=== PATIENT | female | born 1955 | race Caucasian/White ===

== ENCOUNTER → 2020-05-15 | Outpatient (CLI) | payer MEDICAID ==
--- NOTE | 2020-05-15 11:56 | KCIC ---
Examination: MRI of the left knee without contrast HISTORY: History of left knee pain, history of patellar dislocation COMPARISON: None available Technique: Multiplanar, multisequence MR imaging of the left knee was performed without contrast. FINDINGS: The anterior cruciate ligament, posterior cruciate ligament appears intact. There is blunting of the junction of the body and anterior horn of the lateral meniscus probably a small tear. The medial meniscus appears intact. The extensor mechanism is intact. The medial collateral ligament appears intact. Lateral collateral ligamentous complex including the fibular collateral ligament, biceps femoris tendon, popliteus tendon appears intact. Moderate knee joint effusion. The medial, lateral retinaculum appears intact. Small popliteal cyst identified. 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 The medial, lateral retinaculum appears intact. Superficial fraying of cartilage identified in the medial, lateral, patellofemoral compartments. IMPRESSION: 1. Blunting of the body and anterior horn of the lateral meniscus likely a small tear, could be a degenerative tear. 2. Moderate tricompartmental degenerative changes. Moderate knee joint effusion with small popliteal cyst. 3. 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 Electronically signed by: Salas Blair MD (05/15/2020 11:53 AM) [id number]
== END | disposition home or self-care (01) ==
LOC: KCIC MRI 09:42
PROVIDERS: ATTEND Orthopaedic Surgery
DX: M17.12 Unilateral primary osteoarthritis, left knee (principal); M25.462 Effusion, left knee; M71.22 Synovial cyst of popliteal space [Baker], left knee; M23.92 Unspecified internal derangement of left knee
CPT/HCPCS: 73721

== ENCOUNTER → 2020-06-05 | Outpatient (CLI) | payer MEDICAID ==
[2020-06-05 09:57] LABS: BASO # 0.1 x10^3/uL (0.0-0.2); BASO % 1 % (0-3); EOS # 0.2 x10^3/uL (0.0-0.7); EOS % 3 % (0-3); HEMATOCRIT 38.4 % (36.0-47.0); HEMOGLOBIN 12.8 g/dL (12.0-15.5); LYMPH # 1.7 x10^3/uL (1.0-4.8); LYMPH % 21 % (24-48); MEAN CORPUSCULAR HEMOGLOBIN 32 pg (25-35); MEAN CORPUSCULAR HGB CONC 34 g/dL (31-37); MEAN CORPUSCULAR VOLUME 95 fL (79-100); MONO # 0.6 x10^3/uL (0.0-1.1); MONO % 8 % (0-9); NEUT # 5.3 x10^3/uL (1.8-7.7); NEUT % 67 % (31-73); PLATELET COUNT 200 x10^3/uL (140-400); RED BLOOD COUNT 4.05 x10^6/uL (3.50-5.40); RED CELL DISTRIBUTION WIDTH 12.4 % (11.5-14.5); WHITE BLOOD COUNT 7.9 x10^3/uL (4.0-11.0)
[2020-06-05 10:12] LABS: ALBUMIN 3.4 g/dL (3.4-5.0); C-REACTIVE PROTEIN 8.9 mg/L (0-3.3); CALCIUM 8.6 mg/dL (8.5-10.1); CREATININE 0.7 mg/dL (0.6-1.0); GFR 84.8
[2020-06-05 10:29] LABS: PROTHROMBIN TIME PATIENT 12.1 SEC (11.7-14.0)
--- NOTE | 2020-06-05 13:25 | EKG ---
[facility] [address] [place] [address] Test Date: 2020-06-05 Test Time: 12:52:00 Pat Name: CONNER JIMENEZ Department: Room: Gender: F Minibus Driver: ISABELLA Latif : 1955 Requested By: BREANNE TOUSSAINT Order Number: [id number] Reading MD: Jorge Luis Oden MD Measurements Intervals [place] Rate: 56 P: 61 [place]: 214 QRS: 42 QRSD: 70 T: 52 QT: 424 QTc: 412 Interpretive Statements SINUS RHYTHM Electronically Signed On 06-07-2020 8:27:51 CDT by Jorge Luis Oden MD
--- NOTE | 2020-06-05 14:01 | RAD ---
Chest radiograph 06/05/2020 9:24 AM INDICATION: Preoperative evaluation COMPARISON: None available TECHNIQUE: Frontal and lateral views of the chest are provided. FINDINGS: The cardiomediastinal silhouette is within normal limits. There are no pleural effusions. There is no pulmonary vascular congestion. There is no pneumothorax. The lungs are clear. No significant osseous abnormality is identified. IMPRESSION: No acute cardiopulmonary process. Electronically signed by: Irsi Salas MD (06/05/2020 1:58 PM) [id number]
[2020-06-06 01:08] LABS: HEMOGLOBIN A1C 5.2 % (4.8-5.6)
== END ==
LOC: SURGPAT 13:04
PROVIDERS: ATTEND Orthopaedic Surgery
DX: Z01.818 Encounter for other preprocedural examination (principal); M17.12 Unilateral primary osteoarthritis, left knee; I10 Essential (primary) hypertension; Z96.652 Presence of left artificial knee joint
CPT/HCPCS: 36415; 71046; 80048; 82040; 82306; 83036; 85025; 85610; 85730; 86140; 87641; 93005

== ENCOUNTER → 2020-06-23 | Outpatient (CLI) | payer MEDICAID ==
[2020-06-19 11:33] VITALS: BP 114/72
[~2020-06-23] MED LIST: ALBU2.5V8 INH; ALEN70TA60 PO; ASPI-630 PO; BACI1PAC4 TP; BUPR100T11 PO; CALC1CAP8 PO; CARI350T14 PO; CELE200C PO; CETI10TA16 PO; DIPH50CA25 PO; GABA600T7 PO; HYDR-2765 PO; METO25TA4 PO; ROPI0.5T4 PO; SIMV40TA18 PO
== END ==
LOC: LAB 12:04
PROVIDERS: ATTEND Orthopaedic Surgery
DX: Z01.812 Encounter for preprocedural laboratory examination (principal); Z20.828 Contact with and (suspected) exposure to other viral communicable diseases; M17.12 Unilateral primary osteoarthritis, left knee
CPT/HCPCS: U0003